=== PATIENT | male | born 1950 | race American Indian/Alaskan Native ===

== ENCOUNTER → 2022-12-09 17:03 | Outpatient (CLI) | payer MEDICARE, OTHER, SELFPAY ==
--- NOTE | 2022-12-09 | DI.RAD.S_ITS ---
PROCEDURE: XR KNEE LT 1TO2V INDICATIONS: OSTEOARTHRITIS OF BOTH KNEES 1V TECHNIQUE: Single AP weight-bearing view of the knee were acquired. COMPARISON: None. FINDINGS: Bones: No acute fractures or dislocations. No suspicious bony lesions. Moderate joint space narrowing involving the medial femorotibial compartment of the right knee. Degenerative changes noted in the medial and lateral femorotibial compartments bilaterally. Soft tissues: No suspicious soft tissue calcifications. IMPRESSION: Moderate joint space narrowing of the right medial femorotibial compartment. Dictated by: Jordin Hardin M.D. on 12/10/2022 at 9:22 Approved by: Jordin Hardin M.D. on 12/10/2022 at 9:23
== END ==
PROVIDERS: Family Provider Family Medicine; PCP Family Medicine; Referring Provider Family Medicine; Visit Provider Family Medicine
DX: M17.0 Bilateral primary osteoarthritis of knee (principal)
CPT/HCPCS: 73560

== ENCOUNTER 2023-08-30 18:37 | Emergency (ER) | payer MEDICARE, OTHER, SELFPAY ==
[2023-08-30] VITALS (9 sets, daily range): BP systolic 140–180; BP diastolic 65–88; PULSE 57–86; RESP 14–23; TEMP 36.6; O2SAT 94–98; BMI 28.7
--- NOTE | 2023-08-30 18:39 | DI.CT.S_ITS ---
PROCEDURE: CT ANGIO HEAD AND NECK INDICATIONS: altered mental status resolved TECHNIQUE: After the administration of intravenous contrast, 1 mm thick sections acquired from the aortic arch through the [place] of [place]. 3-dimensional unwpchi-fkymlfmgt-tjrmepdktz (MIP) and/or volume rendering reformats were acquired of the central intracranial vasculature and neck separately. For radiation dose reduction, the following was used: automated exposure control, adjustment of mA and/or kV according to patient size. COMPARISON: None. FINDINGS: Image quality: Diagnostic. BRAIN: CSF spaces: Ventricles are normal in size and shape. Basal cisterns are patent. No extra-axial fluid collections. Brain: No significant abnormality of the brain can be seen. Skull and face: Calvarium and facial bones appear intact, without suspicious lesions. Orbits appear normal. Sinuses: Sinuses and mastoids are clear. HEAD CT ANGIOGRAPHY: Anterior circulation: Intracranial internal carotid arteries are normal in size and flow. The flow within the paired anterior cerebral arteries is normal and symmetric. The flow within the middle cerebral arteries is normal and symmetric. The anterior communicating artery is seen. No aneurysms are seen. Posterior circulation: Visualized portions of the vertebral arteries demonstrate normal caliber, and join to form a normal appearing basilar artery. Flow within the posterior cerebral arteries is normal and symmetric. No aneurysms are seen. NECK CT ANGIOGRAPHY: Carotid system: The great vessels demonstrate a conventional anatomy as they arise from the aortic arch. The origins of the common carotid arteries appear patent. The common carotid arteries demonstrate normal caliber and courses. The bifurcation regions are both widely patent. The internal carotid arteries demonstrate normal calibers and courses. Posterior circulation: The origins of the vertebral arteries both appear widely patent. The more superior extracranial portions of both vertebral arteries also demonstrate normal courses and calibers. They join to form a normal appearing basilar artery. Soft tissues: Periesophageal nodularity measuring 1.6 x 0.8 centimeter, along the left, posterior margin of the thyroid (series 4, image 289). Patulous esophagus containing fluid. Bones: No suspicious bony lesions. Visualized cervical spine appears normally aligned. IMPRESSION: No large vessel occlusion. Periesophageal mass measuring 1.6 x 0.8 centimeter. Location is concerning for a parathyroid adenoma. Correlate with calcium and parathyroid labs. Patulous esophagus containing fluid. Findings likely indicate reflux. Any quantitative measurements of stenosis were performed using NASCET criteria. Dictated by: Panfilo Nickerson M.D. on 08/30/2023 at 19:12 Approved by: Panfilo Nickerson M.D. on 08/30/2023 at 19:15
--- NOTE | 2023-08-30 18:39 | DI.CT.S_ITS ---
PROCEDURE: CT HEAD/BRAIN WO CON INDICATIONS: AMS resolved TECHNIQUE: Noncontrast 4.5 mm thick angled axial sections acquired from the foramen magnum to the vertex, with coronal and sagittal reformats. For radiation dose reduction, the following was used: automated exposure control, adjustment of mA and/or kV according to patient size. COMPARISON: None. FINDINGS: Image quality: Excellent. CSF spaces: Basal cisterns are patent. No extra-axial fluid collections. Ventricles are normal in size and shape. Brain: No midline shift. No intracranial masses or hemorrhage. Quiñonez-white matter interface is normal. Skull and face: Calvarium and visualized facial bones are intact, without suspicious lesions. Sinuses: Visualized sinuses and mastoids are clear. IMPRESSION: No acute intracranial pathology. Dictated by: Panfilo Nickerson M.D. on 08/30/2023 at 19:00 Approved by: Panfilo Nickerson M.D. on 08/30/2023 at 19:04
--- NOTE | 2023-08-30 18:40 | DI.RAD.S_ITS ---
PROCEDURE: XR CHEST 1V INDICATIONS: stroke TECHNIQUE: One view of the chest was acquired. COMPARISON: [facility], CHEST 1 VIEW, 03/14/2014, 13:42. [facility], CHEST 1 VIEW, 03/01/2013, 2:10. FINDINGS: Surgical changes and devices: None. Lungs and pleura: Lungs are clear. No pleural effusions or pneumothorax. Mediastinum: Mediastinal contours appear normal. Heart size is normal. Bones and chest wall: No suspicious bony lesions. Overlying soft tissues appear unremarkable. IMPRESSION: Portable chest within normal limits for age. Dictated by: Panfilo Nickerson M.D. on 08/30/2023 at 19:12 Approved by: Panfilo Nickerson M.D. on 08/30/2023 at 19:12
[2023-08-30 19:02] LABS: Add Manual Diff / Slide Review NO; Basophils Absolute Auto 0 /uL (0-100); Basophils Percent Auto 0.3 % (0-2); Eosinophils Absolute Auto 200 /uL (0-450); Eosinophils Percent Auto 1.7 % (2-4); Hematocrit 33.9 % (41-53); Hemoglobin 11.7 g/dL (13.5-17.5); Lymphocytes Absolute Auto 3600 /uL (1100-4500); Lymphocytes Percent Auto 36.6 % (25-40); Mean Corpuscular HGB Conc 34.4 % (30-36); Mean Corpuscular Volume 90.3 fL (80-100); Monocytes Absolute Auto 500 /uL (0-900); Monocytes Percent Auto 5.4 % (3-14); Neutrophils Absolute Auto 5500 /uL (1500-7000); Platelet Count 301 X10^3/uL (150-400); Red Blood Cell Count 3.76 X10^6/uL (4.5-5.9); Red Cell Distribution Width 14.5 % (11.6-14.8); White Blood Cell Count 9.8 X10^3/uL (4.5-11.0)
--- NOTE | 2023-08-30 19:11 | PC.NURSE ---
Pt arrived via [facility] ambulance for code stroke activation. pt somulent upon arrival, but arousable to sound and touch. EMS stated that pt was eating dinner with his family and became unresponsive, so family called ems. Pt went to ct where 20g placed in left AC. pt awake while in ct and asking questions. After returning for ct, when asked what happened, pt stated that he was chopping wood and laid down to take a nap. pt does not recall what he did immediately prior to taking a nap, but admits to smoking marijuana this morning. pt denies using any other street drugs. Pt also admits to drinking 1 shot of etoh this morning. Pt vital signs stable at this time. pt denies any sob, cp, pain. states that he is nauseous and vomited in the ambulance.
--- NOTE | 2023-08-30 19:12 | ED_ITS ---
HPI - Neuro Symptoms/Deficit General Chief Complaint: Neuro Symptoms/Deficit Stated Complaint: stroke Time Seen by Provider: 08/30/23 18:39 Source: EMS Mode of arrival: EMS History of Present Illness HPI Narrative: Patient is 73-year-old male who presents today as code stroke last known well 1600. EMS reports patient was eating dinner with his family when suddenly became unresponsive. He had some slurring of and possibly some unintelligible words which lasted briefly. EMS reports that he quickly came around in room got very nauseous and put his fingers down his throat to make him vomit. He is now awake alert oriented he is a negative fast and negative LAMS score. He admits to smoking marijuana earlier in the day. He had a normal day was chopping wood. No fever or chills. He has no chest pain nausea or vomiting. He is no prior history of TIA or CVA. He denies any alcohol use or any other drug use. at bedside reports that she was on zoom call when she noticed he got up was using his cane she thought there was some slurring of speech and then he froze. She tried to get him back into bed but he was stiff and frozen not shaking staring off into space. Episode lasted less than 10 minutes and quickly resolved. No facial droop. This is never happened to him before. On Anticoagulants: No Related Data Home Medications Medication Instructions Recorded Confirmed hydroxyzine HCl 25 mg tablet 25 mg PO PRN ##0 03/01/13 nortriptyline 10 mg capsule 1 tab PO HSP ##0 03/01/13 (Pamelor) Previous Rx's Medication Instructions Recorded tamsulosin 0.4 mg capsule (Flomax) 0.4 mg PO BEDTIME #10 caps 08/30/23 Allergies Allergy/AdvReac Type Severity Reaction Status Date / Time No Known Allergies Allergy Uncoded 02/02/18 12:19 Review of Systems Hematologic/Lymphatic On Anticoagulants: No Patient History Social History Smoking Status: Never smoker Smoking Status: Never smoker alcohol intake frequency: a few times a week Substance Use Type: marijuana Exam Initial Vital Signs Initial Vital Signs: Vital Signs Temperature 97.8 F 08/30/23 18:46 Pulse Rate 85 08/30/23 18:46 Respiratory Rate 16 08/30/23 18:46 Blood Pressure 140/79 08/30/23 18:46 Pulse Oximetry 97 08/30/23 18:46 Oxygen Delivery Method Room Air 08/30/23 18:46 GENERAL: Alert well-appearing 73-year-old male and in no acute distress. HEENT: Head atraumatic,EOMI, pupils reactive, face symmetric, moist mucous membranes CARDIOVASCULAR: Regular rate and rhythm without murmurs, rubs or gallops. RESPIRATORY: Breath sounds equal bilaterally, no wheezes rales or rhonchi. ABDOMEN: Soft, nontender. Normoactive bowel sounds all 4 quadrants. No guarding or rebound. EXTREMITIES: Normal range of motion, no clubbing or edema. Neurovascularly intact NEUROLOGICAL: Alert and oriented x4.Normal gait and speech. Cranial nerves II through XII grossly intact. Good tpeaup-wg-uext, good xatv-pu-pvka, strength equal bilaterally, no dysarthria or aphasia, sensation in tact to soft touch bilaterally, no visual changes, no facial droop SKIN: Warm, dry, no laceration, no petechiae, no rashes or lesions. Course Orders Ordered: ED Orders 08/30/23 18:39 CT angio head and neck Stat CT head/brain wo con Stat 08/30/23 18:40 XR chest 1V Stat Acetaminophen Stat Complete Blood Count AUTO DIFF Stat Comprehensive Metabolic Panel Stat ETOH [Ethanol (ETOH)] Stat Lipase Stat PTT Partial Thromboplastin Pravin Stat Prothrombin Time INR Stat Salicylate Stat Troponin & CK Cardiac Panel Stat 08/30/23 19:06 EKG-12 Lead Stat 08/30/23 20:02 Urine Drug Screen, Rapid Stat Discontinued Medications Sodium Chloride (Normal Saline 0.9%) 1,000 mls @ 150 mls/hr IV CONT MARK Last Infusion: 08/30/23 21:12 Dose: Infused Documented By: Admin: 08/30/23 19:28 Dose: 150 mls/hr Documented By: SENG Vital Signs Vital signs: Vital Signs - 8 hr 08/30/23 18:46 08/30/23 18:59 08/30/23 19:00 Temperature 97.8 F Pulse Rate 85 85 86 Respiratory Rate 16 23 14 Blood Pressure 140/79 Pulse Oximetry 97 95 94 Oxygen Delivery Method Room Air Room Air 08/30/23 19:00 08/30/23 19:30 08/30/23 20:00 Temperature Pulse Rate 71 67 Respiratory Rate 18 16 Blood Pressure 163/79 H Pulse Oximetry 96 97 Oxygen Delivery Method Room Air Room Air 08/30/23 20:01 08/30/23 20:01 08/30/23 20:30 Temperature Pulse Rate 63 Respiratory Rate 14 Blood Pressure 142/65 H 180/88 H Pulse Oximetry 97 Oxygen Delivery Method Room Air 08/30/23 20:30 08/30/23 21:00 08/30/23 21:01 Temperature Pulse Rate 63 57 L Respiratory Rate 14 16 Blood Pressure 140/67 Pulse Oximetry 97 97 Oxygen Delivery Method Room Air Room Air 08/30/23 21:01 Temperature Pulse Rate 58 L Respiratory Rate 15 Blood Pressure Pulse Oximetry 98 Oxygen Delivery Method Room Air MDM - Neuro Symptoms/Deficit Lab Data 08/30/23 18:40 08/30/23 18:40 Labs: Lab Results 08/30/23 08/30/23 Range/Units 18:40 20:02 WBC 9.8 (4.5-11.0) X10^3/uL RBC 3.76 L (4.5-5.9) X10^6/uL Hgb 11.7 L (13.5-17.5) g/dL Hct 33.9 L (41-53) % MCV 90.3 (80-100) fL MCH 31.0 (26-34) PG MCHC 34.4 (30-36) % RDW 14.5 (11.6-14.8) % Plt Count 301 (150-400) X10^3/uL Neut % (Auto) 56.0 (50-75) % Lymph % (Auto) 36.6 (25-40) % [place] % (Auto) 5.4 (3-14) % Eos % (Auto) 1.7 L (2-4) % Baso % (Auto) 0.3 (0-2) % Neut # (Auto) 5500 (1721-3888) /uL Lymph # (Auto) 3600 (2371-7979) /uL [place] # (Auto) 500 (0-900) /uL Eos # (Auto) 200 (0-450) /uL Baso # (Auto) 0 (0-100) /uL PT 10.4 (10.1-12.7) SECONDS INR 0.9 (0.9-1.3) APTT 27 (26-36) SECONDS Sodium 140 (137-145) mmol/L Potassium 3.4 (3.4-5.1) mmol/L Chloride 110 H (98-107) mmol/L Carbon Dioxide 23 (22-32) mmol/L BUN 11 (9-20) mg/dL Creatinine 1.34 H (0.66-1.25) mg/dL Estimated GFR 57 L (>60) mL/min BUN/Creatinine Ratio 8.2 (6-22) Glucose 122 H (80-110) mg/dL Calcium 11.6 H (8.4-10.2) mg/dL Total Bilirubin 0.2 (0.2-1.3) mg/dL AST 24 (17-59) IU/L ALT 15 (<50) IU/L Alkaline Phosphatase 54 (38-126) U/L Total Creatine Kinase 93 (55-170) U/L Troponin I < 0.012 (0.01-0.034) ng/mL Total Protein 7.0 (6.3-8.2) g/dL Albumin 4.2 (3.5-5.0) g/dL Globulin 2.8 (1.7-4.1) g/dL Albumin/Globulin Ratio 1.5 (1.0-2.8) Lipase 156 (23-300) U/L Salicylates < 1.0 (<20) mg/dL U Opiates 300ng/mL cut Negative (Negative) Ur Oxycodone Screen Positive H (Negative) Urine Methadone Screen Negative (Negative) Acetaminophen < 10 (10-30) ug/mL Ur Barbiturates Screen Negative (Negative) U Tricyclic Antidepress Negative (Negative) Ur Phencyclidine Scrn Negative (Negative) Ur Amphetamines Screen Negative (Negative) U Methamphetamines Scrn Negative (Negative) Ur MDMA Scrn (Ecstasy) Negative (Negative) U Benzodiazepines Scrn Negative (Negative) Urine Cocaine Screen Negative (Negative) U Marijuana (THC) Screen Positive H (Negative) Ethyl Alcohol < 10 ( - 10) mg/dL Imaging Data CT scan - head: Radiologist's Impression: PROCEDURE: CT HEAD/BRAIN WO CON INDICATIONS: AMS resolved TECHNIQUE: Noncontrast 4.5 mm thick angled axial sections acquired from the foramen magnum to the vertex, with coronal and sagittal reformats. For radiation dose reduction, the following was used: automated exposure control, adjustment of mA and/or kV according to patient size. COMPARISON: None. FINDINGS: Image quality: Excellent. CSF spaces: Basal cisterns are patent. No extra-axial fluid collections. Ventricles are normal in size and shape. Brain: No midline shift. No intracranial masses or hemorrhage. [place]z-white matter interface is normal. Skull and face: Calvarium and visualized facial bones are intact, without suspicious lesions. Sinuses: Visualized sinuses and mastoids are clear. IMPRESSION: No acute intracranial pathology. Dictated by: Panfilo Nickerson M.D. on 08/30/2023 at 19:00 CTA - brain/neck: Radiologist's Impression: PROCEDURE: CT ANGIO HEAD AND NECK INDICATIONS: altered mental status resolved TECHNIQUE: After the administration of intravenous contrast, 1 mm thick sections acquired from the aortic arch through the [place]. 3-dimensional fkjfykr-gzpzvibdd-taszaedudh (MIP) and/or volume rendering reformats were acquired of the central intracranial vasculature and neck separately. For radiation dose reduction, the following was used: automated exposure control, adjustment of mA and/or kV according to patient size. COMPARISON: None. FINDINGS: Image quality: Diagnostic. BRAIN: CSF spaces: Ventricles are normal in size and shape. Basal cisterns are patent. No extra-axial fluid collections. Brain: No significant abnormality of the brain can be seen. Skull and face: Calvarium and facial bones appear intact, without suspicious lesions. Orbits appear normal. Sinuses: Sinuses and mastoids are clear. HEAD CT ANGIOGRAPHY: Anterior circulation: Intracranial internal carotid arteries are normal in size and flow. The flow within the paired anterior cerebral arteries is normal and symmetric. The flow within the middle cerebral arteries is normal and symmetric. The anterior communicating artery is seen. No aneurysms are seen. Posterior circulation: Visualized portions of the vertebral arteries demonstrate normal caliber, and join to form a normal appearing basilar artery. Flow within the posterior cerebral arteries is normal and symmetric. No aneurysms are seen. NECK CT ANGIOGRAPHY: Carotid system: The great vessels demonstrate a conventional anatomy as they arise from the aortic arch. The origins of the common carotid arteries appear patent. The common carotid arteries demonstrate normal caliber and courses. The bifurcation regions are both widely patent. The internal carotid arteries demonstrate normal calibers and courses. Posterior circulation: The origins of the vertebral arteries both appear widely patent. The more superior extracranial portions of both vertebral arteries also demonstrate normal courses and calibers. They join to form a normal appearing basilar artery. Soft tissues: Periesophageal nodularity measuring 1.6 x 0.8 centimeter, along the left, posterior margin of the thyroid (series 4, image 289). Patulous esophagus containing fluid. Bones: No suspicious bony lesions. Visualized cervical spine appears normally aligned. IMPRESSION: No large vessel occlusion. Periesophageal mass measuring 1.6 x 0.8 centimeter. Location is concerning for a parathyroid adenoma. Correlate with calcium and parathyroid labs. Patulous esophagus containing fluid. Findings likely indicate reflux. Any quantitative measurements of stenosis were performed using NASCET criteria. Dictated by: Panfilo Nickerson M.D. on 08/30/2023 at 19:12 Chest x-ray: Radiologist's Impression: PROCEDURE: XR CHEST 1V INDICATIONS: stroke TECHNIQUE: One view of the chest was acquired. COMPARISON: [facility], CHEST 1 VIEW, 03/14/2014, 13:42. [facility], CHEST 1 VIEW, 03/01/2013, 2:10. FINDINGS: Surgical changes and devices: None. Lungs and pleura: Lungs are clear. No pleural effusions or pneumothorax. Mediastinum: Mediastinal contours appear normal. Heart size is normal. Bones and chest wall: No suspicious bony lesions. Overlying soft tissues appear unremarkable. IMPRESSION: Portable chest within normal limits for age. Dictated by: Panfilo Nickerson M.D. on 08/30/2023 at 19:12 ECG Data Interpretation: Normal sinus rhythm rate 75 SD interval 166 QRS [address] changes MDM Narrative Medical decision making narrative: Patient is 73-year-old male presents today with altered mental status code stroke activated. Patient awake alert oriented NIH stroke scale of 0. He had brief episode of slurring of speech and inability to move. He did not fall. Head CT did not show any intracranial hemorrhage or mass CT angio does show a paraesophageal mass but he has no difficulty swallowing or pain. He does have a history of colon cancer. Patient's drug screen is positive for marijuana and oxycodone. Patient adamantly denies that he has taken any oxycodone he reports that he was given a muscle relaxer for his knee earlier in the day he does not know the name of it. Blood work has been reviewed: Abnormalities include creatinine 1.34 unclear what his baseline is calcium 11.6, chloride 110 Imaging reviewed the above chest x-ray also done not show any abnormality Symptoms of freezing and becoming nonresponsive while standing really not consistent with opiate toxidrome or CVA. May be partial or absence seizure but it lasted briefly he was not confused afterwards. No tonic-clonic activity.. Discussed with both patient and possibility admission with for TIA a night however patient is quite adamant he would like to go home. agrees. A agree to return if needed. Patient and are updated. Esophageal mass. Encouraged surgery follow-up EGD possible biopsy. Concern of cancer with remote history of colon cancer. Discharge Plan Departure Patient Disposition: Home Clinical Impression: Altered mental status, Esophageal mass Instructions: DI for Transient Ischemic Attack Activity Restrictions/Additional Instructions: *You have been diagnosed with altered mental status unclear exactly what happened today may have been a mini stroke when I think less likely. *What to do: Also was found was a. Esophageal mass you do need to have follow up with this in EGD and or surgery and biopsy. With history of colon cancer this is concerning *Continue to take medications as directed *Follow up with your primary care provider in 2-3 days or call [phone] *Return to ER if you should have increasing pain tingling weakness or any new, worsening or concerning symptoms Prescriptions: New tamsulosin [Flomax] 0.4 mg capsule 0.4 mg PO BEDTIME Qty: 10 0RF No Action hydroxyzine HCl 25 MG tablet 25 mg PO PRN Qty: 0 nortriptyline [Pamelor] 10 MG capsule 1 tab PO HSP Qty: 0 Referrals: Renae Real MD [Primary Care Provider] - Stand Alone Forms: Patient Portal/API
[2023-08-30 19:14] LABS: INR 0.9 (0.9-1.3); Prothrombin Time 10.4 SECONDS (10.1-12.7)
[2023-08-30 19:16] LABS: PTT Partial Thromboplastin Tim 27 SECONDS (26-36)
[2023-08-30 19:20] LABS: Acetaminophen < 10 ug/mL (10-30); Alanine Aminotransferase 15 IU/L (<50); Albumin 4.2 g/dL (3.5-5.0); Albumin Globulin Ratio 1.5 (1.0-2.8); Alkaline Phosphatase 54 U/L (38-126); Aspartate Aminotransferase 24 IU/L (17-59); BUN Creatinine Ratio 8.2 (6-22); Bilirubin Total 0.2 mg/dL (0.2-1.3); Blood Urea Nitrogen 11 mg/dL (9-20); Calcium 11.6 mg/dL (8.4-10.2); Carbon Dioxide 23 mmol/L (22-32); Chloride 110 mmol/L (98-107); Creatine Kinase 93 U/L (55-170); Estimated Glomerular Filt Rate 57 mL/min (>60); Ethanol (ETOH) < 10 mg/dL; Globulin 2.8 g/dL (1.7-4.1); Glucose 122 mg/dL (80-110); HEMOLYSIS < 15 (0-50); Lipase 156 U/L (23-300); Potassium 3.4 mmol/L (3.4-5.1); Salicylate < 1.0 mg/dL (<20); Sodium 140 mmol/L (137-145)
[2023-08-30] MEDS: SODIUM CHLORIDE 0.9% 1,000 ML 150 ML IV (19:28)
[2023-08-30 19:32] LABS: Troponin I < 0.012 ng/mL (0.01-0.034)
[2023-08-30 20:19] LABS: UR Morphine/Opiate cutoff 300 Negative (Negative); Ur Creatinine Normal (Normal); Ur Specific Gravity Normal (Normal); Urine Amphetamines Negative (Negative); Urine Barbiturates Negative (Negative); Urine Benzodiazepines Negative (Negative); Urine Cocaine Negative (Negative); Urine MDMA Negative (Negative); Urine Methadone Negative (Negative); Urine Methamphetamines Negative (Negative); Urine Oxycodone Positive (Negative); Urine Phencyclidine Negative (Negative); Urine Tetrahydrocannabinol Positive (Negative); Urine Tricyclic Antidepressant Negative (Negative); Urine pH Normal (Normal)
== END 2023-08-30 21:14 | disposition home or self-care (01) ==
PROVIDERS: Emergency Provider Emergency Medicine; Family Provider Family Medicine; PCP Family Medicine
DX: R41.82 Altered mental status, unspecified (principal); K22.89 Other specified disease of esophagus; R29.700 NIHSS score 0
CPT/HCPCS: 36415; 70450; 70496; 70498; 71045; 80053; 80305; 80320; 80329; 82550; 83690; 84484; 85025; 85610; 85730; 93005; 96360; 96361; 99284; 99285; G0480; Q9967

== ENCOUNTER 2024-06-23 10:37 | Emergency (ER) | payer MEDICARE, OTHER, SELFPAY ==
[2024-06-23] VITALS (18 sets, daily range): BP systolic 108–144; BP diastolic 59–79; PULSE 56–69; RESP 13–22; TEMP 37.1; O2SAT 97–100; BMI 27.3
--- NOTE | 2024-06-23 10:49 | EKG_ITS ---
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
[2024-06-23 10:56] LABS: Add Manual Diff / Slide Review NO; Basophils Absolute Auto 0 /uL (0-100); Basophils Percent Auto 0.7 % (0-2); Eosinophils Absolute Auto 200 /uL (0-450); Eosinophils Percent Auto 4.4 % (2-4); Hematocrit 28.9 % (41-53); Lymphocytes Absolute Auto 1000 /uL (1100-4500); Lymphocytes Percent Auto 18.6 % (25-40); Mean Corpuscular HGB Conc 34.8 % (30-36); Mean Corpuscular Hemoglobin 30.2 PG (26-34); Mean Corpuscular Volume 86.9 fL (80-100); Monocytes Absolute Auto 300 /uL (0-900); Monocytes Percent Auto 4.9 % (3-14); Neutrophils Absolute Auto 3700 /uL (1500-7000); Neutrophils Percent Auto 71.4 % (50-75); Platelet Count 250 X10^3/uL (150-400); Red Blood Cell Count 3.33 X10^6/uL (4.5-5.9); Red Cell Distribution Width 14.6 % (11.6-14.8); White Blood Cell Count 5.1 X10^3/uL (4.5-11.0)
[2024-06-23 11:03] LABS: Alanine Aminotransferase 21 IU/L (<50); Albumin 3.7 g/dL (3.5-5.0); Albumin Globulin Ratio 1.5 (1.0-2.8); Alkaline Phosphatase 59 U/L (38-126); Aspartate Aminotransferase 52 IU/L (17-59); BUN Creatinine Ratio 8.8 (6-22); Bilirubin Total 0.4 mg/dL (0.2-1.3); Blood Urea Nitrogen 30 mg/dL (9-20); Calcium 11.2 mg/dL (8.4-10.2); Carbon Dioxide 23 mmol/L (22-32); Chloride 104 mmol/L (98-107); Estimated Glomerular Filt Rate 18 mL/min (>60); Globulin 2.4 g/dL (1.7-4.1); Glucose 156 mg/dL (80-110); HEMOLYSIS < 15 (0-50); Potassium 3.1 mmol/L (3.4-5.1); Sodium 136 mmol/L (137-145); Total Protein 6.1 g/dL (6.3-8.2)
[2024-06-23 11:32] LABS: Magnesium 1.9 mg/dL (1.6-2.3)
[2024-06-23] MEDS: POTASSIUM CHLORIDE 20 MEQ TAB PO (11:34)
[2024-06-23] MEDS: POTASSIUM CHLORIDE IN WATER 10 MEQ/100 ML PIGGYBACK 100 MEQ IV ×2 (11:35→12:50)
--- NOTE | 2024-06-23 11:45 | ED_ITS ---
HPI - Recheck/Abnormal Lab/Rx General Chief Complaint: Recheck/Abnormal Lab/Rx Stated Complaint: needs potassium infusion, sent by pcp Time Seen by Provider: 06/23/24 11:15 Source: patient Mode of arrival: Ambulatory History of Present Illness HPI narrative: Patient here with . Here for potassium deficiency and replacement. Patient is sent by primary care. Patient had blood work done 2 days ago, he has appointment next Wednesday, with primary care for medical clearance for his knee surgery. Patient has been asymptomatic. No numbness tingling weakness. No palpitations. No altered mental status. No prior history of hypokalemia. No kidney failure. Patient does have prescription for potassium sent to the pharmacy to [employer] by primary care. Also pain medication for his knees. No nausea vomiting diarrhea Related Data Home Medications Medication Instructions Recorded Confirmed hydroxyzine HCl 25 mg tablet 25 mg PO PRN ##0 03/01/13 nortriptyline 10 mg capsule 1 tab PO HSP ##0 03/01/13 (Pamelor) Previous Rx's Medication Instructions Recorded tamsulosin 0.4 mg capsule (Flomax) 0.4 mg PO BEDTIME #10 caps 08/30/23 potassium chloride 10 mEq 10 meq PO BID #10 tabs 06/23/24 tablet,extended release Allergies Allergy/AdvReac Type Severity Reaction Status Date / Time No Known Drug Allergies Allergy Verified 06/23/24 10:46 Review of Systems Review of Systems Narrative: GENERAL: negative chills, fatigue, malaise, fever, sweats. HEENT: negative sinus pain, ear pain, sore throat RESPIRATORY: negative dyspnea, cough CARDIOVASCULAR: negative chest pain, palpitations GASTROINTESTINAL: negative nausea, vomiting, abdominal pain : negative dysuria, frequency, hematuria MUSCULOSKELETAL: negative muscle or bony pain SKIN: negative rash, skin lesions NEUROLOGIC: negative weakness, numbness ROS Unobtainable: All systems reviewed & are unremarkable except as noted in HPI and below Patient History Social History Smoking Status: Never smoker Smoking Status: Never smoker alcohol intake frequency: a few times a week Substance Use Type: marijuana Exam Narrative Exam Narrative: GENERAL: in no distress, not toxic not dyspneic HEAD: Normocephalic. EYES: Pupils equal round ENT: Mucous membranes moist. NECK: Trachea midline. CARDIOVASCULAR: Regular rate and rhythm RESPIRATORY: Clear to auscultation. Breath sounds equal bilaterally. No wheezes, rales, or rhonchi. GASTROINTESTINAL: Abdomen soft, non-tender EXTREMITIES: No gross deformities. BACK: No flank tenderness. NEURO: AOx4. Clear speech SKIN: Warm and dry PSYCH: Not anxious, is cooperative Initial Vital Signs Initial Vital Signs: Vital Signs Temperature 98.8 F 06/23/24 10:38 Pulse Rate 69 06/23/24 10:38 Respiratory Rate 14 06/23/24 10:38 Blood Pressure 142/61 H 06/23/24 10:38 Pulse Oximetry 100 06/23/24 10:38 Oxygen Delivery Method Room Air 06/23/24 10:38 Course Orders Ordered: Discontinued Medications Hydrocodone Bitart/Acetaminophen (Hydrocodone/Acet 5/325 Tablet) 1 tab PO NOW ONE Stop: 06/23/24 11:45 Last Admin: 06/23/24 11:52 Dose: 1 tab Documented By: JARED Hydrocodone Bitart/Acetaminophen (Hydrocodone/Acet 5/325 Tablet) 1 tab PO NOW ONE Stop: 06/23/24 17:44 Last Admin: 06/23/24 17:52 Dose: 1 tab Documented By: CIELO POTASSIUM CHLORIDE IN WATER (Potassium Cl 10 Meq/100 Ml Opal) 10 meq in 100 mls @ 100 mls/hr IV Q1H [facility], 1928–1983 Stop: 06/23/24 13:14 Last Infusion: 06/23/24 13:56 Dose: Infused Documented By: Admin: 06/23/24 12:50 Dose: 100 mls/hr Documented By: Infusion: 06/23/24 12:40 Dose: Infused Documented By: Admin: 06/23/24 11:35 Dose: 100 mls/hr Documented By: SPF Sodium Chloride (Normal Saline 0.9%) 1,000 mls @ 125 mls/hr IV Q1HR [facility], 1928–1983 Sodium Chloride (Normal Saline 0.9%) 1,000 mls @ 1,000 mls/hr IV BOLUS ONE Stop: 06/23/24 12:46 Last Infusion: 06/23/24 13:55 Dose: Infused Documented By: Admin: 06/23/24 11:51 Dose: 500 mls/hr Documented By: SPF Sodium Chloride (Normal Saline 0.9%) 500 mls @ 125 mls/hr IV BOLUS ONE Stop: 06/23/24 15:47 Last Admin: 06/23/24 11:51 Dose: Not Given Documented By: JARED Potassium Chloride (Potassium Chloride 20 Meq Tab) 20 meq PO NOW ONE Stop: 06/23/24 11:16 Last Admin: 06/23/24 11:34 Dose: 20 meq Documented By: JARED Vital Signs Vital signs: Vital Signs - 8 hr 06/23/24 10:38 06/23/24 10:42 06/23/24 10:43 Temperature 98.8 F Pulse Rate 69 64 Respiratory Rate 14 22 Blood Pressure 142/61 H 142/61 H Pulse Oximetry 100 99 Oxygen Delivery Method Room Air 06/23/24 11:00 06/23/24 11:00 06/23/24 11:30 Temperature Pulse Rate 64 61 Respiratory Rate 13 14 Blood Pressure 116/61 Pulse Oximetry 98 100 Oxygen Delivery Method 06/23/24 11:30 06/23/24 12:00 06/23/24 12:00 Temperature Pulse Rate 64 Respiratory Rate 14 Blood Pressure 115/67 116/64 Pulse Oximetry 99 Oxygen Delivery Method 06/23/24 12:30 06/23/24 12:30 06/23/24 13:00 Temperature Pulse Rate 67 61 Respiratory Rate 16 16 Blood Pressure 127/65 Pulse Oximetry 99 98 Oxygen Delivery Method 06/23/24 13:00 06/23/24 13:30 06/23/24 13:30 Temperature Pulse Rate 57 L Respiratory Rate 18 Blood Pressure 121/66 118/69 Pulse Oximetry 99 Oxygen Delivery Method 06/23/24 14:00 06/23/24 14:00 06/23/24 14:30 Temperature Pulse Rate 65 66 Respiratory Rate 20 22 Blood Pressure 130/67 Pulse Oximetry 99 97 Oxygen Delivery Method 06/23/24 14:31 06/23/24 14:31 06/23/24 15:00 Temperature Pulse Rate 65 65 Respiratory Rate 14 15 Blood Pressure 131/60 Pulse Oximetry 99 100 Oxygen Delivery Method Room Air 06/23/24 15:00 06/23/24 15:30 06/23/24 15:30 Temperature Pulse Rate 66 Respiratory Rate 13 Blood Pressure 133/73 130/72 Pulse Oximetry 98 Oxygen Delivery Method 06/23/24 16:00 06/23/24 16:00 06/23/24 16:30 Temperature Pulse Rate 63 56 L Respiratory Rate 14 17 Blood Pressure 137/79 Pulse Oximetry 99 98 Oxygen Delivery Method 06/23/24 16:30 Temperature Pulse Rate Respiratory Rate Blood Pressure 144/73 H Pulse Oximetry Oxygen Delivery Method MDM - Recheck/Abnormal Lab/Rx Lab Data 06/23/24 10:45 06/23/24 14:01 Labs: Lab Results 06/23/24 06/23/24 Range/Units 10:45 14:01 WBC 5.1 (4.5-11.0) X10^3/uL RBC 3.33 L (4.5-5.9) X10^6/uL Hgb 10.0 L (13.5-17.5) g/dL Hct 28.9 L (41-53) % MCV 86.9 (80-100) fL MCH 30.2 (26-34) PG MCHC 34.8 (30-36) % RDW 14.6 (11.6-14.8) % Plt Count 250 (150-400) X10^3/uL Neut % (Auto) 71.4 (50-75) % Lymph % (Auto) 18.6 L (25-40) % [place] % (Auto) 4.9 (3-14) % Eos % (Auto) 4.4 H (2-4) % Baso % (Auto) 0.7 (0-2) % Neut # (Auto) 3700 (8296-6311) /uL Lymph # (Auto) 1000 L (0313-1669) /uL [place] # (Auto) 300 (0-900) /uL Eos # (Auto) 200 (0-450) /uL Baso # (Auto) 0 (0-100) /uL Sodium 136 L 136 L (137-145) mmol/L Potassium 3.1 L 3.3 L (3.4-5.1) mmol/L Chloride 104 109 H (98-107) mmol/L Carbon Dioxide 23 22 (22-32) mmol/L BUN 30 H 31 H (9-20) mg/dL Creatinine 3.39 H 2.93 H (0.66-1.25) mg/dL Estimated GFR 18 L 22 L (>60) mL/min BUN/Creatinine Ratio 8.8 10.6 (6-22) Glucose 156 H 82 (80-110) mg/dL Calcium 11.2 H 10.1 (8.4-10.2) mg/dL Magnesium 1.9 (1.6-2.3) mg/dL Total Bilirubin 0.4 0.4 (0.2-1.3) mg/dL AST 52 43 (17-59) IU/L ALT 21 16 (<50) IU/L Alkaline Phosphatase 59 53 (38-126) U/L Total Protein 6.1 L 5.4 L (6.3-8.2) g/dL Albumin 3.7 2.9 L (3.5-5.0) g/dL Globulin 2.4 2.5 (1.7-4.1) g/dL Albumin/Globulin Ratio 1.5 1.2 (1.0-2.8) Imaging Data Renal ultrasound: Radiologist's Impression: [address] [address] Ultrasound Report Signed Patient: Thony Ríos MR#: [id number] : 1950 Acct:[id number] Age/Sex: 74 / M Date of Service: 06/23/24 Loc: ED Accession Number: [id number] Procedure: US renal complete Ordering Provider: Betito Hollis MD PROCEDURE: US RENAL COMPLETE INDICATIONS: renal failure TECHNIQUE: Real-time scanning was performed of the kidneys and bladder, with image documentation. COMPARISON: None. FINDINGS: Kidneys: Right kidney measures 10 cm. Left kidney measures 10 cm. No hydronephrosis. No obstructing stones or masses. Bladder: Elevated postvoid residual at 82 cc. Borderline enlarged prostate at 4 9 x 4 cm. Miscellaneous: No free pelvic fluid. IMPRESSION: No hydronephrosis. Elevated postvoid residual 82 cc. Borderline enlarged prostate. Dictated by: Denver Jimenez M.D. on 06/23/2024 at 17:06 Approved by: Denver Jimenez M.D. on 06/23/2024 at 17:07 [facility] Narrative Medical decision making narrative: Patient here with . Here for potassium deficiency and replacement. Patient is sent by primary care. Patient had blood work done 2 days ago, he has appointment next Wednesday, with primary care for medical clearance for his knee surgery. Patient has been asymptomatic. No numbness tingling weakness. No palpitations. No altered mental status. No prior history of hypokalemia. No kidney failure. Patient does have prescription for potassium sent to the pharmacy to [employer] by primary care. Also pain medication for his knees. No nausea vomiting diarrhea After history and exam CBC CMP magnesium potassium replacement EKG [facility] Medical records reviewed: No recent visit for this complaint Differential considered: Includes but not limited to hypokalemia kidney failure Lab Test results independently reviewed as above. Pertinent findings: WBC 5.1 hemoglobin 10.0 sodium 136 potassium 3.1 BUN 30 creatinine 3.39 GFR 18 glucose 156 Repeat CMP sodium 136 potassium 3.3 BUN 31 creatinine 2.93 GFR 22 Independently reviewed EKG normal sinus rhythm rate [address] elevation or depression. Slight flattening of T-waves Imaging studies independently reviewed: Renal ultrasound no acute finding Consultations: 2:[address] Lee, who will see patient for evaluation. He would like patient to have renal ultrasound 5:[address] Lee, he reviewed ultrasound. Patient meets criteria for discharge as improving renal function after IV fluids likely prerenal. Patient can have prescription potassium Treatments: Potassium normal saline Re-evaluations: 2:00 p.m.. Patient resting comfortably. No distress. 5:45 p.m.. Spoke with patient's . Patient feeling better after IV fluids. Urinating a lot after IV fluids. Reviewed results with patient and . Likely dehydration prerenal. I did review with hospitalist and spoke with him findings. Return precautions reviewed. They desire discharge home. Discussion: Appropriate for discharge home. Exam is reassuring. I did review with hospitalist. Likely prerenal/dehydration. Fits criteria for discharge as improving laboratory studies. For hydration. Patient feeling much better after IV fluids and is urinating a lot afterwards. Clear urine. Return precautions reviewed with patient and . They desire discharge home. Diagnosis: Acute renal injury/hypokalemia Discharge Plan Departure Patient Disposition: Home Clinical Impression: Acute kidney injury, Acute hypokalemia Instructions: DI for Dehydration -- Adult, DI for Hypokalemia, DI for Acute Kidney Injury Activity Restrictions/Additional Instructions: Please see your family doctor on Wednesday as scheduled. Prescription for potassium has been provided for you. Keep well hydrated. Return if worse if any questions or concerns. It is likely you are not drinking enough fluids. Prescriptions: New potassium chloride 10 mEq tablet extended release 10 meq PO BID Qty: 10 0RF No Action hydroxyzine HCl 25 MG tablet 25 mg PO PRN Qty: 0 nortriptyline [Pamelor] 10 MG capsule 1 tab PO HSP Qty: 0 tamsulosin [Flomax] 0.4 mg capsule 0.4 mg PO BEDTIME Qty: 10 0RF Referrals: Renae Real MD [Primary Care Provider] - Stand Alone Forms: Patient Portal/API
[2024-06-23] MEDS: SODIUM CHLORIDE 0.9% 1,000 ML 500 ML IV (11:51)
[2024-06-23] MEDS: HYDROCODONE/ACET 5/325 TABLET 1 TAB PO ×2 (11:52→17:52)
[2024-06-23 14:33] LABS: Alanine Aminotransferase 16 IU/L (<50); Albumin 2.9 g/dL (3.5-5.0); Albumin Globulin Ratio 1.2 (1.0-2.8); Alkaline Phosphatase 53 U/L (38-126); Aspartate Aminotransferase 43 IU/L (17-59); BUN Creatinine Ratio 10.6 (6-22); Bilirubin Total 0.4 mg/dL (0.2-1.3); Blood Urea Nitrogen 31 mg/dL (9-20); Calcium 10.1 mg/dL (8.4-10.2); Carbon Dioxide 22 mmol/L (22-32); Chloride 109 mmol/L (98-107); Estimated Glomerular Filt Rate 22 mL/min (>60); Globulin 2.5 g/dL (1.7-4.1); Glucose 82 mg/dL (80-110); HEMOLYSIS < 15 (0-50); Potassium 3.3 mmol/L (3.4-5.1); Sodium 136 mmol/L (137-145); Total Protein 5.4 g/dL (6.3-8.2)
--- NOTE | 2024-06-23 14:40 | DI.US.S_ITS ---
PROCEDURE: US RENAL COMPLETE INDICATIONS: renal failure TECHNIQUE: Real-time scanning was performed of the kidneys and bladder, with image documentation. COMPARISON: None. FINDINGS: Kidneys: Right kidney measures 10 cm. Left kidney measures 10 cm. No hydronephrosis. No obstructing stones or masses. Bladder: Elevated postvoid residual at 82 cc. Borderline enlarged prostate at 4 9 x 4 cm. Miscellaneous: No free pelvic fluid. IMPRESSION: No hydronephrosis. Elevated postvoid residual 82 cc. Borderline enlarged prostate. Dictated by: Denver Jimenez M.D. on 06/23/2024 at 17:06 Approved by: Denver Jimenez M.D. on 06/23/2024 at 17:07
--- NOTE | 2024-06-23 17:38 | PM.CALLCOV.1 ---
Call Coverage Note Note Narrative of Care Provided: 74 M medicine asked to evaluate for admission for MARISOL. Cr 3.3 improved to 2.9 after 1L fluids. Patient denies any symptoms currently. No n/v or diarrhea. Low potassium improved with repletion. He is eating and tolerating a diet. Renal ultrasound without obstruction, likely some component of BPH. Given improvement in labs, that patient is hemodynamically stable and asymptomatic, and has no significant electrolyte derangements he meets criteria for discharge home from the ER. If patient is agreeable he can discharge home with outpatient labs next Wednesday (Holiday weekend) for further evaluation by PCP.
== END 2024-06-23 18:20 | disposition home or self-care (01) ==
PROVIDERS: Emergency Provider Emergency Medicine; Family Provider Family Medicine; PCP Family Medicine
DX: N17.9 Acute kidney failure, unspecified (principal); E87.6 Hypokalemia
CPT/HCPCS: 36415; 76770; 80053; 83735; 85025; 93005; 96365; 96366; 99284

== ENCOUNTER → 2024-07-06 11:08 | Outpatient (CLI) | payer MEDICARE, OTHER, SELFPAY ==
--- NOTE | 2024-07-06 11:10 | DI.CT.S_ITS ---
PROCEDURE: CT KIDNEY URETER BLADDER (KUB) INDICATIONS: KIDNEY INSUFFICIENCY TECHNIQUE: Axial sections were acquired from the lung bases to the pubic symphysis. Coronal and sagittal reformats were performed. For radiation dose reduction, the following was used: automated exposure control, adjustment of mA and/or kV according to patient size. COMPARISON: None. FINDINGS: Image quality: Diagnostic. Lower Chest: No significant findings. URINARY: Kidneys and ureters: Kidneys are symmetric and normal in size. No significant perinephric stranding. No renal calculi or hydronephrosis. No hydroureter. Bladder: Normal wall thickness. No stones. ABDOMEN: Liver: No contour-deforming solid mass. Gallbladder: No radiopaque gallstones or wall thickening. Biliary ducts: No biliary dilation. Pancreas: No ductal dilation. Spleen: Size is within normal limits. Adrenal Glands: No adrenal nodules. Stomach and Bowel: Surgical clips are seen near the gastroesophageal junction. A few diverticular noted in the colon. A surgical anastomosis is seen at the rectosigmoid junction. The distal colon and rectum are under distended, which limits evaluation. Peritoneum: Trace free fluid in the pelvis is of uncertain etiology. No pneumoperitoneum. Ventral Wall: No hernia. Abdominal Nodes: No enlarged retroperitoneal or mesenteric lymph nodes. Vessels: Aorta and inferior vena cava are normal in size. PELVIS: Pelvic Organs: Prostate appears enlarged and images upon the bladder base.. Pelvic Nodes: Unremarkable. Miscellaneous: No inguinal hernias are seen. Bones: Nonaggressive circumscribed lucency is seen at the posterior aspect of the left femur near the level of the lesser trochanter. Multilevel lumbar spondylosis. IMPRESSION: 1. No hydronephrosis or nephrolithiasis. Kidneys are normal in size. 2. Prostatomegaly. Approved by: Yuri Mccarty M.D. on 07/06/2024 at 14:03
== END ==
PROVIDERS: Family Provider Family Medicine; PCP Family Medicine; Referring Provider Nurse Practitioner Family; Visit Provider Nurse Practitioner Family
DX: N28.9 Disorder of kidney and ureter, unspecified (principal); K57.90 Diverticulosis of intestine, part unspecified, without perforation or abscess without bleeding; N40.0 Benign prostatic hyperplasia without lower urinary tract symptoms; M47.816 Spondylosis without myelopathy or radiculopathy, lumbar region
CPT/HCPCS: 74176